=== PATIENT | female | born 2000 | race Caucasian/White ===

== ENCOUNTER 2023-06-26 09:55 | Emergency (ER) | payer OTHER ==
[~2023-06-26] VITALS: Ht 165.1 cm; Wt 87.0 kg
[2023-06-26 10:16] VITALS: O2SAT 99
[2023-06-26] MEDS ORDERED: AMOX1TAB16 MT (11:57)
[2023-06-26 12:10] VITALS: BP 124/84; PULSE 87; RESP 16; TEMP 98.5
== END 2023-06-26 12:17 | disposition home or self-care (01) ==
LOC: ER 10:49
DX: S61.211A Laceration without foreign body of left index finger without damage to nail, initial encounter (principal); W50.3XXA Accidental bite by another person, initial encounter; Y93.89 Activity, other specified; Y92.89 Other specified places as the place of occurrence of the external cause; Y99.8 Other external cause status
CPT/HCPCS: 73120; 99283